=== PATIENT | female | born 1965 | race Caucasian/White ===

== ENCOUNTER 2019-09-06 10:48 | Emergency (ER) | payer OTHER ==
[2019-09-06 11:02] VITALS: BP 170/102; PULSE 102
[2019-09-06] MEDS ORDERED: Lidocaine 1% 10 ML MDV INJECT ONE (11:07)
[2019-09-06] MEDS ORDERED: Diphtheria,Pertussis(Acell),Tetanus Vaccine 0.5 ML Syringe IM ONE (11:08)
--- NOTE | 2019-09-06 11:13 | EDM.PDOC ---
ED HPI GENERAL MEDICAL PROBLEM - General Chief Complaint: Laceration Stated Complaint: R FOOT LAC Time Seen by Provider: 09/06/19 11:06 Source of Information: Reports: Patient History Limitations: Reports: No Limitations - History of Present Illness INITIAL COMMENTS - FREE TEXT/NARRATIVE: Patient is a 54-year-old female who presents with complaints of a laceration to the dorsal aspect her distal right foot. 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 She is not sure when her last tetanus vaccination was, however states that she thinks she is likely due. Right Foot Pain Score (Numeric/FACES): 0 - Related Data Allergies Allergy/AdvReac Type Severity Reaction Status Date / Time No Known Allergies Allergy Verified 09/06/19 10:58 Past Medical History Gastrointestinal History: Reports: GERD, Hiatal Hernia Musculoskeletal History: Reports: Osteoarthritis Psychiatric History: Reports: Depression - Past Surgical History HEENT Surgical History: Reports: Oral Surgery, Tonsillectomy Female Surgical History: Reports: Other (See Below) Other Female Surgeries/Procedures: lumpectomy Social & Family History - Family History Family Medical History: Noncontributory - Tobacco Use Smoking Status *Q: Never Smoker Second Hand Smoke Exposure: No ED ROS GENERAL - Review of Systems Review Of Systems: Comprehensive ROS is negative, except as noted in HPI. ED EXAM, SKIN/RASH Exam: See Below Exam Limited By: No Limitations General Appearance: Alert, WD/WN, No Apparent Distress Respiratory/Chest: No Respiratory Distress, Lungs Clear, Normal Breath Sounds, No Accessory Muscle Use, Chest Non-Tender Cardiovascular: Normal Peripheral Pulses, Regular Rate, Rhythm, No Edema, No Gallop, No JVD, No Murmur, No Rub Skin: Other (2 cm laceration to the dorsal aspect of the right foot proximal to the great toe.) ED SKIN PROCEDURES - Laceration/Wound Repair Right Foot Appearance: Subcutaneous Distal NVT: Neuro & Vascular Intact Anesthetic Type: Local Local Anesthesia - Lidocaine (Xylocaine): 1% Plain Local Anesthetic Volume: 2cc Skin Prep: Chlorhexidine (Hibiciens), Providone-Iodine (Betadine), Saline Exploration/Debridement/Repair: Wound Explored, No Foreign Material Found Closed with: Sutures Lac/Wound length In cm: 2 Suture Size: 4-0 # of Sutures: 5 Suture Type: Nylon Sterile Dressing Applied: Nurse Tetanus Status Addressed: Yes Complications: No Course - Vital Signs Last Recorded V/S: Last Vital Signs Temp 98.4 F 09/06/19 10:59 Pulse 102 H 09/06/19 10:59 Resp 16 09/06/19 10:59 BP 170/102 H 09/06/19 10:59 Pulse Ox 98 09/06/19 10:59 - Orders/Labs/Meds Orders: Active Orders 24 hr Category Date Time Status Vaccines to be Administered [RC] PER UNIT ROUTINE Care 09/06/19 11:08 Active Meds: Medications Discontinued Medications Generic Name Dose Route Start Last Admin Trade Name Hardik PRN Reason Stop Dose Admin Diphtheria/Tetanus/Acell Pertussis 0.5 ml 09/06/19 11:08 09/06/19 11:20 Adacel IM 09/06/19 11:09 0.5 ml .ONCE ONE Administration Lidocaine HCl 10 ml 09/06/19 11:07 09/06/19 11:21 Xylocaine 1% INJECT 09/06/19 11:08 10 ml ONETIME ONE Administration Departure - Departure Time of Disposition: 11:43 Disposition: Home, Self-Care 01 Condition: Good Clinical Impression: Laceration - Discharge Information *PRESCRIPTION DRUG MONITORING PROGRAM REVIEWED*: No Instructions: Sutures, Dillon, or Adhesive Wound Closure, [id number] Referrals: Kristen Cortez [employer] [facility] [Primary Care Provider] - Forms: ED Department Discharge Additional Instructions: You were seen in the emergency department today for a laceration to your right foot. The wound was cleansed and closed with 5 sutures. These should stay intact for 10 to 12 days. After that time they may be removed in the clinic by a nurse. Keep the wound clean and dry. Wash with normal soap and water twice daily. Do not submerge the wound in water. Watch for signs of infection including increased redness, swelling, or purulent drainage. If these should occur, you should be seen either in the clinic or in the emergency department as these are signs of infection. Return to the ER as needed. Sepsis Event Note - Evaluation Sepsis Screening Result: No Definite Risk - Focused Exam Vital Signs: Vital Signs Temp Pulse Resp BP Pulse Ox 09/06/19 10:59 98.4 F 102 H 16 170/102 H 98 Date Exam was Performed: 09/06/19 Time Exam was Performed: 11:41 - My Orders Last 24 Hours: My Active Orders 09/06/19 11:08 Vaccines to be Administered [RC] PER UNIT ROUTINE - Assessment/Plan Last 24 Hours: My Active Orders 09/06/19 11:08 Vaccines to be Administered [RC] PER UNIT ROUTINE
== END 2019-09-06 12:26 | disposition home or self-care (01) ==
LOC: JD.ED 10:48
DX: S91.311A Laceration without foreign body, right foot, initial encounter (principal); Z23 Encounter for immunization; W45.8XXA Other foreign body or object entering through skin, initial encounter
CPT/HCPCS: 12001; 90471; 90715; 99282; J2001

== ENCOUNTER 2023-05-15 20:15 | Emergency (ER) | payer BC ==
[2023-05-15 22:45] VITALS: BP 170/93; PULSE 99
== END 2023-05-15 22:56 | disposition home or self-care (01) ==
LOC: JD.ED 20:15
DX: M50.10 Cervical disc disorder with radiculopathy, unspecified cervical region (principal)
CPT/HCPCS: 99283